=== PATIENT | female | born 1960 | race African-American/Black ===

== ENCOUNTER → 2020-01-27 | Outpatient (CLI) | payer MEDICARE, MEDICAID ==
[~2020-01-27] MED LIST: AMLO10TA80 PO; ATOR20TA PO; CHOL500063 PO; CLON0.1T14 PO; CLON0.2T PO; CLOP75TA33 PO; DULO30CA52 PO; HYDR100T26 PO; INSLIS SUBCUT; LEVE750T10 PO; LISI-653 PO; METO50TA95 PO; NIFE60TA18 PO; OMEP20CA14 PO; OMEP40CA12 PO
== END | disposition home or self-care (01) ==
LOC: LAB 08:22
PROVIDERS: ATTEND Surgery Vascular Surgery
DX: Z20.828 Contact with and (suspected) exposure to other viral communicable diseases (principal); N18.9 Chronic kidney disease, unspecified
CPT/HCPCS: C9803; U0003

== ENCOUNTER 2020-01-30 05:15 | Day surgery (SDC) | payer MEDICARE, MEDICAID ==
[~2020-01-30] VITALS: Ht 168.9 cm; Wt 79.8 kg
[~2020-01-30 05:15] MED LIST changes: -AMLO10TA80 PO; -CHOL500063 PO; -CLON0.2T PO; -CLOP75TA33 PO; -DULO30CA52 PO; -INSLIS SUBCUT; -LEVE750T10 PO; -OMEP40CA12 PO
[2020-01-30 06:09] LABS: BASOPHILS % 1.3 % (0.0-2.0); EOSINOPHILS % 2.4 % (0.0-5.0); HEMATOCRIT. 38.7 % (36.0-48.0); HEMOGLOBIN. 12.7 g/dL (12.0-16.0); LYMPHOCYTES % 30.7 % (20.0-50.0); MEAN PLATELET VOLUME 10.3 fl (7.4-10.4); MONOCYTES % 9.4 % (2.0-8.0); NEUTROPHILS % 56.2 % (40.0-76.0); PLATELET 278 x1000/uL (130-400); RED BLOOD CELL COUNT 4.55 mill/uL (4.2-5.4); RED CELL DISTRIBUTION WIDTH 14.2 % (11.6-14.6)
[2020-01-30 06:20] LABS: PARTIAL THROMBOPLASTIN TIME 28.5 sec (23.4-31.0); PROTHROMBIN TIME 10.4 sec (9.6-11.0)
[2020-01-30] MEDS ORDERED: HEPARIN 100 UNITS/1 ML VIAL ONE (06:23)
[2020-01-30] MEDS ORDERED: BACITRACIN 15GM TUBE TOP ONE (06:23)
[2020-01-30] MEDS ORDERED: BUPIVACAINE HCL/PF 0.5% (5MG/ML) 10ML ONE (06:24)
[2020-01-30] MEDS ORDERED: LIDOCAINE HCL 1% 20ML VIAL (Pyxis) INJ ONE (06:24)
[2020-01-30] MEDS ORDERED: THROMBIN (BOVINE) 5000 UNITS/VIAL TOP ONE (06:24)
[2020-01-30] MEDS ORDERED: BACITRACIN 50,000 UNITS/VIAL ONE (06:24)
[2020-01-30] MEDS ORDERED: SODIUM CHLORIDE 0.9% 500 ML IV ONE (06:45)
[2020-01-30] MEDS ORDERED: HEPARIN SODIUM 1,000 UNIT/1ML VIAL IV ONE (06:59)
[2020-01-30] MEDS ORDERED: FENTANYL CITRATE/PF 50MCG/ML 2ML VIAL ONE (07:28)
[2020-01-30] MEDS ORDERED: MIDAZOLAM HCL 2 MG/2 ML VIAL ONE (07:28)
[2020-01-30] MEDS ORDERED: PROPOFOL 200MG/20ML VIAL IV ONE (07:28)
[2020-01-30] MEDS ORDERED: CLINDAMYCIN 900 MG PREMIX 50 ML IV ONE (07:48)
[2020-01-30] MEDS ORDERED: DEXAMETHASONE 4MG/ML 1ML VIAL ONE (07:59)
[2020-01-30] MEDS ORDERED: ONDANSETRON HCL 4MG/2ML INJ ONE (07:59)
[2020-01-30] MEDS ORDERED: LABETALOL 5MG/ML SYR 20 MG/4 ML SYRINGE IV PRN (08:30)
[2020-01-30] MEDS ORDERED: MEPERIDINE HCL/PF 25MG/ML CPJ IV PRN (08:30)
[2020-01-30] MEDS ORDERED: ONDANSETRON HCL 4MG/2ML INJ IV PRN (08:30)
[2020-01-30] MEDS ORDERED: HYDROMORPHONE HCL/PF 2MG/ML CPJ IV PRN (08:30)
[2020-01-30] MEDS ORDERED: DULO30CA52 PO (08:43)
[2020-01-30] MEDS ORDERED: INSLIS SUBCUT (08:43)
[2020-01-30] MEDS ORDERED: AMLO10TA80 PO (08:43)
[2020-01-30] MEDS ORDERED: HYDR100T26 PO (08:43)
[2020-01-30] MEDS ORDERED: CHOL500063 PO (08:43)
[2020-01-30] MEDS ORDERED: CLON0.2T PO (08:43)
[2020-01-30] MEDS ORDERED: OMEP40CA12 PO (08:43)
[2020-01-30] MEDS ORDERED: LEVE750T10 PO (08:43)
[2020-01-30] MEDS ORDERED: CLOP75TA33 PO (08:43)
== END 2020-01-30 10:15 | disposition home or self-care (01) ==
LOC: OR 05:15
PROVIDERS: ATTEND Surgery Vascular Surgery
DX: I12.0 Hypertensive chronic kidney disease with stage 5 chronic kidney disease or end stage renal disease (principal); E11.22 Type 2 diabetes mellitus with diabetic chronic kidney disease; N18.6 End stage renal disease; E66.9 Obesity, unspecified; E78.00 Pure hypercholesterolemia, unspecified; Z86.73 Personal history of transient ischemic attack (TIA), and cerebral infarction without residual deficits; Z99.2 Dependence on renal dialysis; Z79.84 Long term (current) use of oral hypoglycemic drugs; Z79.899 Other long term (current) drug therapy; Z98.890 Other specified postprocedural states
CPT/HCPCS: 36415; 36821; 80048; 82962; 85025; 85610; 85730; 93005; J1100; J1642; J1644; J2250; J2405; J2704; J3010; J3490; J7030; J7040

== ENCOUNTER → 2020-03-08 | Outpatient (CLI) | payer MEDICARE, MEDICAID ==
[~2020-03-08] MED LIST changes: +AMLO10TA80 PO; +CHOL500063 PO; -CLON0.1T14 PO; +CLON0.2T PO; +CLOP75TA33 PO; +DULO30CA52 PO; +INSLIS SUBCUT; +LEVE750T10 PO; -LISI-653 PO; -NIFE60TA18 PO; -OMEP20CA14 PO; +OMEP40CA12 PO
== END | disposition home or self-care (01) ==
LOC: LAB 11:15
PROVIDERS: ATTEND Surgery Vascular Surgery
DX: Z20.828 Contact with and (suspected) exposure to other viral communicable diseases (principal)
CPT/HCPCS: 87426

== ENCOUNTER → 2020-03-09 | Day surgery (SDC) | payer MEDICARE, MEDICAID ==
[~2020-03-09] VITALS: Ht 168.9 cm; Wt 79.8 kg
[~2020-03-09] MED LIST changes: +BACITRACIN 15GM TUBE TOP ONE; +BACITRACIN 50,000 UNITS/VIAL ONE; +BUPIVACAINE HCL/PF 0.5% (5MG/ML) 10ML ONE; +DEXAMETHASONE 4MG/ML 1ML VIAL ONE; +FENTANYL CITRATE/PF 50MCG/ML 2ML VIAL ONE; +GLYCOPYRROLATE 0.2 MG/ML 2ML VIAL ONE; +HEPARIN SODIUM 1,000 UNIT/1ML VIAL IV ONE; +HYDROMORPHONE HCL/PF 2MG/ML CPJ IV PRN; +LABETALOL 5MG/ML SYR 20 MG/4 ML SYRINGE IV PRN; +LIDOCAINE HCL 1% 20ML VIAL (Pyxis) INJ ONE; +MEPERIDINE HCL/PF 25MG/ML CPJ IV PRN; +MIDAZOLAM HCL 2 MG/2 ML VIAL ONE; +NEOSTIGMINE METHYLSULFATE 1MG/ML 10 ML VIAL ONE; +ONDANSETRON HCL 4MG/2ML INJ IV PRN; +ONDANSETRON HCL 4MG/2ML INJ ONE; +PROPOFOL 200MG/20ML VIAL IV ONE; +ROCURONIUM BROMIDE 10MG/ML VIAL 5ML IV ONE; +SODIUM CHLORIDE 0.9% 500 ML IV ONE; +THROMBIN (BOVINE) 5000 UNITS/VIAL TOP ONE
[2020-03-09 06:20] LABS: BASOPHILS % 1.6 % (0.0-2.0); EOSINOPHILS % 1.8 % (0.0-5.0); HEMATOCRIT. 36.9 % (36.0-48.0); HEMOGLOBIN. 11.9 g/dL (12.0-16.0); LYMPHOCYTES % 25.7 % (20.0-50.0); MEAN CORPUSCULAR HEMOGLOBIN 27.7 pg (28.0-32.0); MEAN CORPUSCULAR VOLUME 85.7 fL (81.0-99.0); MEAN PLATELET VOLUME 9.5 fl (7.4-10.4); MONOCYTES % 7.4 % (2.0-8.0); NEUTROPHILS % 63.5 % (40.0-76.0); PLATELET 286 x1000/uL (130-400); RED CELL DISTRIBUTION WIDTH 14.7 % (11.6-14.6)
[2020-03-09 06:32] LABS: PARTIAL THROMBOPLASTIN TIME 28.7 sec (23.4-31.0); PROTHROMBIN TIME 10.1 sec (9.6-11.0)
[2020-03-09 09:43] VITALS: BP 125/82
== END | disposition home or self-care (01) ==
LOC: OR 05:50
PROVIDERS: ATTEND Surgery Vascular Surgery
DX: I12.0 Hypertensive chronic kidney disease with stage 5 chronic kidney disease or end stage renal disease (principal); N18.6 End stage renal disease; E11.22 Type 2 diabetes mellitus with diabetic chronic kidney disease; E66.9 Obesity, unspecified; F17.210 Nicotine dependence, cigarettes, uncomplicated; Z79.4 Long term (current) use of insulin; Z79.899 Other long term (current) drug therapy; Z86.718 Personal history of other venous thrombosis and embolism; Z98.890 Other specified postprocedural states; Z88.0 Allergy status to penicillin; Z88.8 Allergy status to other drugs, medicaments and biological substances; Z72.89 Other problems related to lifestyle; Z68.28 Body mass index [BMI] 28.0-28.9, adult
CPT/HCPCS: 36415; 36830; 80048; 82962; 85025; 85610; 85730; 93005; C1768; J1100; J1170; J1644; J2250; J2405; J2704; J2710; J3010; J3490; J7030; J7040

== ENCOUNTER 2023-01-02 06:31 | Emergency (ER) | payer BC, MEDICAID, MEDICARE ==
[~2023-01-02] VITALS: Ht 167.6 cm; Wt 84.0 kg
[~2023-01-02 06:31] MED LIST changes: -BACITRACIN 15GM TUBE TOP ONE; -BACITRACIN 50,000 UNITS/VIAL ONE; -BUPIVACAINE HCL/PF 0.5% (5MG/ML) 10ML ONE; -CLON0.2T PO; -CLOP75TA33 PO; -DEXAMETHASONE 4MG/ML 1ML VIAL ONE; -FENTANYL CITRATE/PF 50MCG/ML 2ML VIAL ONE; -GLYCOPYRROLATE 0.2 MG/ML 2ML VIAL ONE; -HEPARIN SODIUM 1,000 UNIT/1ML VIAL IV ONE; -HYDROMORPHONE HCL/PF 2MG/ML CPJ IV PRN; +KEPPSOL PO; -LABETALOL 5MG/ML SYR 20 MG/4 ML SYRINGE IV PRN; -LEVE750T10 PO; -LIDOCAINE HCL 1% 20ML VIAL (Pyxis) INJ ONE; +LOSA-415 PO; -MEPERIDINE HCL/PF 25MG/ML CPJ IV PRN; +METO100T16 PO; -MIDAZOLAM HCL 2 MG/2 ML VIAL ONE; -NEOSTIGMINE METHYLSULFATE 1MG/ML 10 ML VIAL ONE; -OMEP40CA12 PO; +OMEP40CA20 PO; -ONDANSETRON HCL 4MG/2ML INJ IV PRN; -ONDANSETRON HCL 4MG/2ML INJ ONE; -PROPOFOL 200MG/20ML VIAL IV ONE; -ROCURONIUM BROMIDE 10MG/ML VIAL 5ML IV ONE; -SODIUM CHLORIDE 0.9% 500 ML IV ONE; +SUCR1ORA15 NG; -THROMBIN (BOVINE) 5000 UNITS/VIAL TOP ONE
[2023-01-02 07:01] VITALS: O2SAT 98
[2023-01-02 07:39] LABS: BASOPHILS % 1.3 % (0.0-2.0); HEMATOCRIT. 32.3 % (36.0-48.0); HEMOGLOBIN. 10.6 g/dL (12.0-16.0); LYMPHOCYTES % 23.6 % (20.0-50.0); MEAN CORPUSCULAR HEMOGLOBIN 28.8 pg (28.0-32.0); MEAN CORPUSCULAR HGB CONC 32.7 g/dL (31.0-37.0); MEAN PLATELET VOLUME 8.8 fl (7.4-10.4); MONOCYTES % 7.8 % (2.0-8.0); NEUTROPHILS % 64.3 % (40.0-76.0); PLATELET 259 x1000/uL (130-400); RED BLOOD CELL COUNT 3.67 mill/uL (4.2-5.4); RED CELL DISTRIBUTION WIDTH 15.8 % (11.6-14.6); WHITE BLOOD COUNT 8.3 x1000/uL (4.5-11.0)
[2023-01-02 07:52] LABS: CHLORIDE 114 mEq/L (98-107); INDEX HEMOLYSI 1 (1-3); INDEX ICTERIC 1 (1-4); INDEX LIPEMIC 1 (1-3); POTASSIUM 3.7 mEq/L (3.5-5.1); SODIUM 143 mEq/L (136-145)
[2023-01-02 07:54] LABS: PROTHROMBIN TIME 10.6 sec (9.6-11.0)
[2023-01-02] MEDS ORDERED: ALTEPLASE 2MG/VIAL ITC SCH (08:00)
[2023-01-02 08:01] LABS: CARBON DIOXIDE 19 mEq/L (21-32)
[2023-01-02 08:02] LABS: ALANINE AMINOTRANSFERASE 17 IU/L (13-61); ALBUMIN 3.8 g/dL (3.4-5.0); ASPARTATE AMINOTRANSFERASE 10 IU/L (15-37); BILIRUBIN TOTAL 0.4 mg/dL (0.1-1.0); CALCIUM 9.2 mg/dL (8.5-10.1); GLUCOSE 87 mg/dL (70-105); PROTEIN TOTAL 8.2 g/dL (6.0-8.3); UREA NITROGEN BLOOD 54 mg/dL (7-21)
[2023-01-02 08:06] LABS: CREATININE 8.5 mg/dL (0.6-1.3)
[2023-01-02] MEDS ORDERED: CLINDAMYCIN 600MG PREMIX 50 ML IV NR (08:30)
[2023-01-02] MEDS ORDERED: LIDOCAINE HCL 1% 10 MG/ML 10ML VIAL ONE (10:52)
[2023-01-02] MEDS ORDERED: HEPARIN 1000 UNITS/ML 10ML ONE (10:52)
[2023-01-02] MEDS ORDERED: IOHEXOL-300 100 ML BOTTLE ONE (10:53)
[2023-01-02 12:18] VITALS: BP 176/89; PULSE 82; RESP 16; TEMP 98.1
== END 2023-01-02 12:21 | disposition home or self-care (01) ==
LOC: ER 07:05
DX: T82.590A Other mechanical complication of surgically created arteriovenous fistula, initial encounter (principal); E11.22 Type 2 diabetes mellitus with diabetic chronic kidney disease; I12.9 Hypertensive chronic kidney disease with stage 1 through stage 4 chronic kidney disease, or unspecified chronic kidney disease; N18.9 Chronic kidney disease, unspecified
CPT/HCPCS: 36901; 80053; 85025; 36415; 85610; 71045; 99284; 96365; Q9967; J1644 ×2; J3490; C1887; J2997

== ENCOUNTER 2023-01-14 07:41 | Emergency (ER) | payer BC, MEDICAID, MEDICARE ==
[~2023-01-14] VITALS: Ht 165.1 cm; Wt 81.0 kg
[2023-01-14 07:49] VITALS: BP 222/109; O2SAT 98
[2023-01-14 08:22] VITALS: PULSE 99; RESP 18; TEMP 98.3
== END 2023-01-14 08:22 | disposition home or self-care (01) ==
LOC: ER 07:41
DX: S41.112D Laceration without foreign body of left upper arm, subsequent encounter (principal); I12.0 Hypertensive chronic kidney disease with stage 5 chronic kidney disease or end stage renal disease; E11.22 Type 2 diabetes mellitus with diabetic chronic kidney disease; N18.6 End stage renal disease; Z99.2 Dependence on renal dialysis; E78.00 Pure hypercholesterolemia, unspecified; Z48.02 Encounter for removal of sutures; Z79.82 Long term (current) use of aspirin; Z88.0 Allergy status to penicillin; Z88.6 Allergy status to analgesic agent; Z79.899 Other long term (current) drug therapy; Z98.890 Other specified postprocedural states; Z86.73 Personal history of transient ischemic attack (TIA), and cerebral infarction without residual deficits; X58.XXXD Exposure to other specified factors, subsequent encounter
CPT/HCPCS: 99281

== ENCOUNTER 2024-04-26 11:28 | Emergency (ER) | payer BC ==
[~2024-04-26] VITALS: Ht 167.6 cm; Wt 91.0 kg
[~2024-04-26 11:28] MED LIST changes: +HYDR100T11 PO; -HYDR100T26 PO
[2024-04-26 11:41] VITALS: BP 146/78; TEMP 98.3; O2SAT 98
[2024-04-26 14:13] VITALS: PULSE 101; RESP 15; O2SAT 99
== END 2024-04-26 14:50 | disposition left against medical advice (07) ==
LOC: ER 11:28
DX: I25.2 Old myocardial infarction (principal); I10 Essential (primary) hypertension; E11.9 Type 2 diabetes mellitus without complications; E78.00 Pure hypercholesterolemia, unspecified; Z53.21 Procedure and treatment not carried out due to patient leaving prior to being seen by health care provider; Z86.73 Personal history of transient ischemic attack (TIA), and cerebral infarction without residual deficits
CPT/HCPCS: 93005

== ENCOUNTER 2024-05-02 07:43 | Emergency (ER) | payer BC, MEDICAID ==
[~2024-05-02] VITALS: Ht 167.6 cm; Wt 90.7 kg
[2024-05-02 07:57] VITALS: BP 158/130; PULSE 68; RESP 16; TEMP 98.3; O2SAT 100
[2024-05-02 09:38] LABS: POTASSIUM 5.1 mEq/L (3.5-5.1)
[2024-05-02 09:39] LABS: CALCIUM 8.8 mg/dL (8.7-10.4)
[2024-05-02 09:43] LABS: BASOPHILS % 1.2 % (0.0-2.0); EOSINOPHILS % 3.1 % (0.0-5.0); HEMATOCRIT. 34.1 % (36.0-48.0); HEMOGLOBIN. 10.7 g/dL (12.0-16.0); LYMPHOCYTES % 35.3 % (20.0-50.0); MEAN CORPUSCULAR HEMOGLOBIN 29.3 pg (28.0-32.0); MEAN CORPUSCULAR HGB CONC 31.5 g/dL (31.0-37.0); MEAN PLATELET VOLUME 10.3 fl (7.4-10.4); MONOCYTES % 8.8 % (2.0-8.0); NEUTROPHILS % 51.6 % (40.0-76.0); PLATELET 136 x1000/uL (130-400); RED BLOOD CELL COUNT 3.67 mill/uL (4.2-5.4); RED CELL DISTRIBUTION WIDTH 14.9 % (11.6-14.6); WHITE BLOOD COUNT 6.6 x1000/uL (4.5-11.0)
[2024-05-02 10:17] LABS: CREATININE 8.2 mg/dL (0.6-1.0)
== END 2024-05-02 19:10 | disposition left against medical advice (07) ==
LOC: ER 07:49 → EDBEDREQ 10:10 → EDBEDREQTM 10:10 → CANBEDREQ 18:56 → ER 19:10
DX: T82.590A Other mechanical complication of surgically created arteriovenous fistula, initial encounter (principal); I25.2 Old myocardial infarction; I12.0 Hypertensive chronic kidney disease with stage 5 chronic kidney disease or end stage renal disease; N18.6 End stage renal disease; E78.00 Pure hypercholesterolemia, unspecified; E11.22 Type 2 diabetes mellitus with diabetic chronic kidney disease; Z79.899 Other long term (current) drug therapy; Z99.2 Dependence on renal dialysis; Z88.6 Allergy status to analgesic agent; Z88.0 Allergy status to penicillin; Z86.73 Personal history of transient ischemic attack (TIA), and cerebral infarction without residual deficits; Y92.89 Other specified places as the place of occurrence of the external cause
CPT/HCPCS: 36415; 80048; 85025; 93922; 99284

== ENCOUNTER 2024-07-19 13:11 | Inpatient (IN) | payer BC, MEDICAID, MEDICARE ==
[2024-07-19] VITALS (7 sets, daily range): BP systolic 161–175; BP diastolic 85–94; PULSE 94–117; RESP 18–20; TEMP 36.44736–37.5; O2SAT 97
[~2024-07-19] VITALS: Ht 167.6 cm; Wt 87.6 kg
[2024-07-19 14:13] LABS: BASOPHILS % 0.9 % (0.0-2.0); EOSINOPHILS % 0.4 % (0.0-5.0); HEMATOCRIT. 35.8 % (36.0-48.0); HEMOGLOBIN. 11.3 g/dL (12.0-16.0); LYMPHOCYTES % 25.6 % (20.0-50.0); MEAN CORPUSCULAR HEMOGLOBIN 28.4 pg (28.0-32.0); MEAN CORPUSCULAR HGB CONC 31.5 g/dL (31.0-37.0); MEAN CORPUSCULAR VOLUME 90.1 fL (81.0-99.0); MEAN PLATELET VOLUME 8.5 fl (7.4-10.4); MONOCYTES % 12.1 % (2.0-8.0); PLATELET 257 x1000/uL (130-400); RED BLOOD CELL COUNT 3.98 mill/uL (4.2-5.4); RED CELL DISTRIBUTION WIDTH 13.9 % (11.6-14.6); WHITE BLOOD COUNT 6.7 x1000/uL (4.5-11.0)
[2024-07-19 14:16] LABS: CHLORIDE 105 mEq/L (98-107); POTASSIUM 5.6 mEq/L (3.5-5.1); SODIUM 138 mEq/L (136-145)
[2024-07-19 14:17] LABS: CARBON DIOXIDE 22 mEq/L (21-32)
[2024-07-19 14:18] LABS: CALCIUM 10.1 mg/dL (8.7-10.4)
[2024-07-19 14:22] LABS: GLUCOSE 97 mg/dL (70-105)
[2024-07-19 14:23] LABS: UREA NITROGEN BLOOD 53 mg/dL (9-23)
[2024-07-19 14:24] LABS: ALANINE AMINOTRANSFERASE 7 IU/L (10-49); ALBUMIN 3.7 g/dL (3.2-4.8); ASPARTATE AMINOTRANSFERASE 18 IU/L (<34)
[2024-07-19 14:25] LABS: BILIRUBIN DIRECT < 0.1 mg/dL (<=3.0); BILIRUBIN TOTAL 0.2 mg/dL (0.1-1.0); PROTEIN TOTAL 7.2 g/dL (6.0-8.3)
[2024-07-19 14:39] LABS: CREATININE 10.7 mg/dL (0.6-1.0)
[2024-07-19] MEDS: DEXTROSE 50% WATER 50ML SYRINGE IV ONE (14:49)
[2024-07-19] MEDS: LABETALOL 5MG/ML 4ML INJ IV ONE ×2 (14:58→16:13)
[2024-07-19] MEDS ORDERED: CALCIUM GLUCONATE 1,000 MG in DEXT 5% WATER 100 ML IV ONE (15:15)
[2024-07-19] MEDS: ALBUTEROL (0.083%) 2.5MG/3ML NEB HHN SCH (15:28)
[2024-07-19] MEDS: CALCIUM GLUCONATE 1GM PREMIX 50 ML IV NR (15:49)
[2024-07-19] MEDS: SODIUM BICARBONATE 8.4% 50MEQ/50ML SYR IV ONE (15:51)
[2024-07-19] MEDS: HYDRALAZINE 20MG/ML VIAL IV ONE (16:50)
[2024-07-19] MEDS: HYDRALAZINE 20MG/ML VIAL IV PRN ×2 (17:51→22:46)
[2024-07-19 18:33] LABS: INFLUENZA TYPE A Presumptive Negative (Pres. Neg.); INFLUENZA TYPE B Presumptive Negative (Pres. Neg.)
[2024-07-19] MEDS: ACETAMINOPHEN 325MG TABLET PO PRN (20:52)
[2024-07-19] MEDS: HYDRALAZINE 20MG/ML VIAL IV NR (20:52)
[2024-07-20] VITALS: BP 161/74; PULSE 111; RESP 20; TEMP 38; O2SAT 96
[2024-07-20] MEDS: CLONIDINE 0.2MG TABLET PO PRN (03:32)
[2024-07-20 04:00] VITALS: BP 157/79; PULSE 89; RESP 19; TEMP 36.3; O2SAT 96
[2024-07-20] MEDS: DEXTROSE 50% WATER 50ML SYRINGE IV PRN (04:05)
[2024-07-20] MEDS: BLOOD SUGAR DIAGNOSTIC STRIP TEST SCH (06:14)
[2024-07-20 06:35] LABS: CALCIUM 10.1 mg/dL (8.7-10.4); POTASSIUM 4.8 mEq/L (3.5-5.1)
[2024-07-20 06:37] LABS: BASOPHILS % 1.1 % (0.0-2.0); EOSINOPHILS % 0.2 % (0.0-5.0); HEMATOCRIT. 32.6 % (36.0-48.0); HEMOGLOBIN. 10.7 g/dL (12.0-16.0); MEAN CORPUSCULAR HEMOGLOBIN 29.1 pg (28.0-32.0); MEAN CORPUSCULAR HGB CONC 32.7 g/dL (31.0-37.0); MEAN CORPUSCULAR VOLUME 88.8 fL (81.0-99.0); MEAN PLATELET VOLUME 9.2 fl (7.4-10.4); MONOCYTES % 12.8 % (2.0-8.0); NEUTROPHILS % 67.9 % (40.0-76.0); PLATELET 218 x1000/uL (130-400); RED BLOOD CELL COUNT 3.68 mill/uL (4.2-5.4); RED CELL DISTRIBUTION WIDTH 13.8 % (11.6-14.6); WHITE BLOOD COUNT 5.5 x1000/uL (4.5-11.0)
[2024-07-20] MEDS: DEXTROSE 10% WATER 1,000 ML IV SCH ×2 (06:44→09:00)
[2024-07-20 06:57] LABS: CREATININE 10.8 mg/dL (0.6-1.0)
[2024-07-20] MEDS ORDERED: BLOOD SUGAR DIAGNOSTIC STRIP TEST SCH (07:20)
[2024-07-20] MEDS: INSULIN LISPRO 100 UNITS/ML SUBCUT SCH (07:50)
[2024-07-20 08:00] VITALS: BP 106/65; PULSE 84; RESP 16; TEMP 35.9; O2SAT 100
[2024-07-20] MEDS: HYDRALAZINE HCL 100MG TABLET PO SCH (09:52)
[2024-07-20] MEDS: METOPROLOL SUCCINATE 50MG ER TABLET PO SCH (09:53)
[2024-07-20] MEDS: NIFEDIPINE XL 60MG TAB PO SCH (09:54)
[2024-07-20 12:00] VITALS: BP 155/71; PULSE 88; RESP 15; TEMP 36.9; O2SAT 97
[2024-07-20 16:00] VITALS: BP 142/78; PULSE 116; RESP 18; TEMP 36.1; O2SAT 95
[2024-07-20 20:00] VITALS: BP 161/77; PULSE 119; RESP 20; TEMP 36.2; O2SAT 96
[2024-07-20] MEDS: ATORVASTATIN CALCIUM 40MG TABLET PO SCH (20:43)
[2024-07-21] VITALS (13 sets, daily range): BP systolic 117–209; BP diastolic 59–90; PULSE 101–127; RESP 15–22; TEMP 36.1–36.55848; O2SAT 93–99
[2024-07-21 08:42] LABS: HEPATITIS B SURFACE ANTIGEN NEGATIVE (Negative)
[2024-07-21 09:02] LABS: HEPATITIS A AB IGM NEGATIVE (Negative)
[2024-07-21 09:04] LABS: HEPATITIS B CORE AB IGM NEGATIVE (Negative); HEPATITIS C AB NON REACTIVE (Neg) (Negative)
[2024-07-21] MEDS: CLONIDINE 0.2MG TABLET PO SCH (14:00)
[2024-07-22] VITALS: BP 125/63; PULSE 95; RESP 20; TEMP 36.2; O2SAT 93
[2024-07-22 04:00] VITALS: BP 142/62; PULSE 97; RESP 21; TEMP 36.3; O2SAT 100
[2024-07-22 08:00] VITALS: BP 124/61; PULSE 98; RESP 18; TEMP 36.3; O2SAT 98
[2024-07-22] MEDS: NIFEDIPINE XL 60MG TAB PO SCH (08:47)
[2024-07-22 12:00] VITALS: BP 129/55; PULSE 93; RESP 17; TEMP 36.8; O2SAT 96
[2024-07-22 12:18] VITALS: BP 124/61; PULSE 86; TEMP 97.4; O2SAT 98
[2024-07-22 14:43] LABS: BG CARBOXYHEMOGLOBIN 0.8 % (0.5-1.5); BG DEOXYHEMOGLOBIN 9.3 % (0.0-5.0); BG FRACTION INSPIRED OXYGEN 21; BG HCO3 ACT 19.2 mmol/L (21.0-28.0); BG METHEMOGLOBIN 0.1 % (0.5-1.5); BG OXYGEN SATURATION 90.6 % (94.0-98.0); BG OXYHEMOGLOBIN 89.8 % (94.0-98.0); BG PCO2 29.1 mmHg (32.0-45.0); BG PH 7.437 (7.350-7.450); BG PO2 61.8 mmHg (83.0-108.0); BG SAMPLE SITE RIGHT BRACHIAL; BG TOTAL HEMOGLOBIN 11.4 g/dL (12.0-16.0); BG VENT MODE ROOM AIR
[2024-07-22 16:00] VITALS: BP 120/72; PULSE 88; RESP 18; TEMP 36.6; O2SAT 97
== END 2024-07-22 16:05 | disposition home or self-care (01) | DRG 638 ==
LOC: ER 13:11 → EDBEDREQ 17:08 → EDBEDREQTM 17:08 → 6WST 22:03
PROVIDERS: ADMIT Internal Medicine; ATTEND Internal Medicine
PROC: 5A1D70Z Performance of Urinary Filtration, Intermittent, Less than 6 Hours Per Day (ICD-10-PCS; principal; 2024-07-19)
PROC: 5A1D70Z Performance of Urinary Filtration, Intermittent, Less than 6 Hours Per Day (ICD-10-PCS; 2024-07-21)
DX: E11.649 Type 2 diabetes mellitus with hypoglycemia without coma (principal); E87.20 Acidosis, unspecified; I12.0 Hypertensive chronic kidney disease with stage 5 chronic kidney disease or end stage renal disease; E87.5 Hyperkalemia; N18.6 End stage renal disease; I16.0 Hypertensive urgency; Z20.822 Contact with and (suspected) exposure to COVID-19; D64.9 Anemia, unspecified; E11.22 Type 2 diabetes mellitus with diabetic chronic kidney disease; E78.00 Pure hypercholesterolemia, unspecified; G40.909 Epilepsy, unspecified, not intractable, without status epilepticus; Z91.158 Patient's noncompliance with renal dialysis for other reason; Z86.73 Personal history of transient ischemic attack (TIA), and cerebral infarction without residual deficits; Z88.0 Allergy status to penicillin; Z88.6 Allergy status to analgesic agent; Z99.2 Dependence on renal dialysis
CPT/HCPCS: 36415; 36600; 71045; 80048; 80061; 80076; 82375; 82805; 82962; 83036; 84145; 85018; 85025; 86705; 86709; 87340; 87426; 87804; 90935; 93005; 94070; 94618; 94640; 94664; 99291; A4606; J0360; J0610; J1815; J3490; J7060